=== PATIENT | male | born 1985 | race African-American/Black ===

== ENCOUNTER 2017-02-02 20:05 | Emergency (ER) | payer SELFPAY ==
--- NOTE | 2017-02-02 22:09 | RAD ---
Indication: Shortness of breath. 2 views of the chest including dual energy PA views demonstrate no mediastinal shift. Heart is normal size and configuration. Lung beltre are clear. IMPRESSION: No active cardiopulmonary disease is noted.
[2017-02-02 23:18] LABS: Albumin 4.5 g/dL (3.2-5.2); BUN/Creatinine Ratio 10.1 (8-20); Calcium 9.7 mg/dL (8.6-10.3); EGFR African American 113.4 (>60); EGFR Non-African American 88.2 (>60); Globulin 2.8 g/dL (2-4); Potassium 3.8 mmol/L (3.5-5.0); Total Bilirubin 1.1 mg/dL (0.2-1.0); Total Protein 7.3 g/dL (6.4-8.9)
[2017-02-02 23:34] LABS: Hematocrit 46 % (42-52); Hemoglobin 15.2 g/dl (14.0-18.0); Mean Corpuscular HGB Conc 33 g/dl (31-36); Mean Corpuscular Hemoglobin 29 pg (27-31); Mean Corpuscular Volume 87 fL (80-94); Mean Platelet Volume 10 um3 (7.4-10.4); Red Blood Count 5.31 10^6/ul (4.0-5.4); Red Cell Distribution Width 12 % (10.5-15); White Blood Count 7.9 10^3/ul (3.5-10.8)
[2017-02-03] MEDS ORDERED: Albuterol HFA INHALER* 8 gm MDI INH ONE (00:06)
--- NOTE | 2017-02-03 00:29 | ED ---
Allergic Reaction/Systemic - HPI Summary HPI Summary: Patient presents to the ED with a possible allergic reaction. He states while working this afternoon, he inhaled some of the product he was working with ( some kind of spice), and began to cough and feel SOB with feelings of throat discomfort. He decided to leave work and go home, upon where he was found "unresponsive" by his neighbors, but he states he was just fatigued and didn't wake up. On arrival to the ED, he feels better and denies any current symptoms. He denies known allergies and has never had this severe of a reaction before, but states he usually coughs when inhaling the product. Episode happened this morning at work, and he presents to the ED at 10pm. It is unknown if this was an allergic reaction or some other etiology. He feels OK, denies recent illness or feelings of illness. VS stable on arrival. The product from which he is referring may have caused this reaction, he states he eats and cooks with this spice daily with no complications. PMHx includes HTN 10 years ago but is currently controlled. - History of Current Complaint Chief Complaint: EDGeneral Time Seen by Provider: 02/02/17 23:03 Hx Obtained From: Patient Onset/Duration: Sudden Onset, Started hours ago Timing: Intermittent, Lasting Minutes Severity Initially: Mild Severity Currently: None Pain Intensity: 0 Pain Scale Used: 0-10 Numeric Aggravating Factor(s): Nothing Alleviating Factor(s): Nothing Associated Signs And Symptoms: Positive: Difficulty Breathing, Throat Tightening - Related Hx Possible Reaction To: Food - Allergies/Home Medications Allergies/Adverse Reactions: Allergies Allergy/AdvReac Type Severity Reaction Status Date / Time No Known Allergies Allergy Verified 02/02/17 20:20 PMH/Surg Hx/FS Hx/Imm Hx Previously Healthy: Yes Endocrine/Hematology History: Denies: Hx Anticoagulant Therapy, Hx Diabetes Cardiovascular History: Reports: Hx Hypertension Infectious Disease History: No Infectious Disease History: Denies: Traveled Outside the [place] in Last 30 Days - Family History Known Family History: Positive: Cardiac Disease - Social History Occupation: Employed Full-time Lives: With Family Alcohol Use: Rare Hx Substance Use: No Substance Use Type: Reports: None Hx Tobacco Use: Yes Smoking Status (MU): Current Some Day Smoker Review of Systems Constitutional: Negative Negative: Fever, Chills, Fatigue Eyes: Negative Negative: Diplopia, Drainage, Erythema Positive: Sore Throat - now has dissipated Negative: Palpitations, Chest Pain Positive: Shortness Of Breath, Cough - back to baseline currently Negative: Abdominal Pain, Vomiting Positive: no symptoms reported, see HPI Skin: Negative Neurological: Negative All Other Systems Reviewed And Are Negative: Yes Physical Exam Triage Information Reviewed: Yes Vital Signs On Initial Exam: Initial Vitals Temp Pulse Resp BP Pulse Ox 98.2 F 86 16 162/79 98 02/02/17 20:22 02/02/17 20:22 02/02/17 20:22 02/02/17 20:22 02/02/17 20:22 Vital Signs Reviewed: Yes Appearance: Positive: Well-Appearing, Well-Nourished Skin: Positive: Warm, Skin Color Reflects Adequate Perfusion Head/Face: Positive: Normal Head/Face Inspection Eyes: Positive: Normal, EOMI, KEITH, Conjunctiva Clear Neck: Positive: Supple, Nontender, No Lymphadenopathy Respiratory/Lung Sounds: Positive: Clear to Auscultation, Breath Sounds Present Cardiovascular: Positive: Normal, RRR, Pulses are Symmetrical in both Upper and Lower Extremities Musculoskeletal: Positive: Normal, Strength/ROM Intact Neurological: Positive: Speech Normal Psychiatric: Positive: Normal AVPU Assessment: Alert - [place] Coma Scale Best Eye Response: 4 - Spontaneous Best Motor Response: 6 - Obeys Commands Best Verbal Response: 5 - Oriented Coma Scale Total: 15 Diagnostics - Vital Signs Vital Signs Temp Pulse Resp BP Pulse Ox 02/02/17 23:30 73 12 137/82 100 02/02/17 23:16 74 12 100 02/02/17 23:14 130/70 02/02/17 21:37 98.8 F 97 16 147/81 100 02/02/17 20:22 98.2 F 86 16 162/79 98 - Laboratory Lab Results: Lab Results 02/02/17 02/02/17 02/02/17 Range/Units 22:34 22:34 23:21 WBC (3.5-10.8) 10^3/ul RBC (4.0-5.4) 10^6/ul Hgb (14.0-18.0) g/dl Hct (42-52) % MCV (80-94) fL MCH (27-31) pg MCHC (31-36) g/dl RDW (10.5-15) % Plt Count (150-450) 10^3/ul MPV (7.4-10.4) um3 Neut % (Auto) (38-83) % Lymph % (Auto) (25-47) % [place] % (Auto) (1-9) % Eos % (Auto) (0-6) % Baso % (Auto) (0-2) % Absolute Neuts (auto) (1.5-7.7) 10^3/ul Absolute Lymphs (auto) (1.0-4.8) 10^3/ul Absolute Monos (auto) (0-0.8) 10^3/ul Absolute Eos (auto) (0-0.6) 10^3/ul Absolute Basos (auto) (0-0.2) 10^3/ul Absolute Nucleated RBC 10^3/ul Nucleated RBC % INR (Anticoag Therapy) 0.91 (0.89-1.11) APTT 23.7 L (26.0-36.3) seconds Sodium 136 (133-145) mmol/L Potassium 3.8 (3.5-5.0) mmol/L Chloride 103 (101-111) mmol/L Carbon Dioxide 27 (22-32) mmol/L Anion Gap 6 (2-11) mmol/L BUN 10 (6-24) mg/dL Creatinine 0.99 (0.67-1.17) mg/dL Est GFR ( Amer) 113.4 (>60) Est GFR (Non-Af Amer) 88.2 (>60) BUN/Creatinine Ratio 10.1 (8-20) Glucose 90 (70-100) mg/dL Calcium 9.7 (8.6-10.3) mg/dL Total Bilirubin 1.10 H (0.2-1.0) mg/dL AST 20 (13-39) U/L ALT 14 (7-52) U/L Alkaline Phosphatase 52 (34-104) U/L Troponin I 0.00 (<0.04) ng/mL B-Natriuretic Peptide 7 ( - 100) pg/mL Total Protein 7.3 (6.4-8.9) g/dL Albumin 4.5 (3.2-5.2) g/dL Globulin 2.8 (2-4) g/dL Albumin/Globulin Ratio 1.6 (1-3) 02/02/17 Range/Units 23:21 WBC 7.9 (3.5-10.8) 10^3/ul RBC 5.31 (4.0-5.4) 10^6/ul Hgb 15.2 (14.0-18.0) g/dl Hct 46 (42-52) % MCV 87 (80-94) fL MCH 29 (27-31) pg MCHC 33 (31-36) g/dl RDW 12 (10.5-15) % Plt Count 189 (150-450) 10^3/ul MPV 10 (7.4-10.4) um3 Neut % (Auto) 76.0 (38-83) % Lymph % (Auto) 15.0 L (25-47) % [place] % (Auto) 7.5 (1-9) % Eos % (Auto) 1.1 (0-6) % Baso % (Auto) 0.4 (0-2) % Absolute Neuts (auto) 6.0 (1.5-7.7) 10^3/ul Absolute Lymphs (auto) 1.2 (1.0-4.8) 10^3/ul Absolute Monos (auto) 0.6 (0-0.8) 10^3/ul Absolute Eos (auto) 0.1 (0-0.6) 10^3/ul Absolute Basos (auto) 0 (0-0.2) 10^3/ul Absolute Nucleated RBC 0 10^3/ul Nucleated RBC % 0.1 INR (Anticoag Therapy) (0.89-1.11) APTT (26.0-36.3) seconds Sodium (133-145) mmol/L Potassium (3.5-5.0) mmol/L Chloride (101-111) mmol/L Carbon Dioxide (22-32) mmol/L Anion Gap (2-11) mmol/L BUN (6-24) mg/dL Creatinine (0.67-1.17) mg/dL Est GFR ( Amer) (>60) Est GFR (Non-Af Amer) (>60) BUN/Creatinine Ratio (8-20) Glucose (70-100) mg/dL Calcium (8.6-10.3) mg/dL Total Bilirubin (0.2-1.0) mg/dL AST (13-39) U/L ALT (7-52) U/L Alkaline Phosphatase (34-104) U/L Troponin I (<0.04) ng/mL B-Natriuretic Peptide ( - 100) pg/mL Total Protein (6.4-8.9) g/dL Albumin (3.2-5.2) g/dL Globulin (2-4) g/dL Albumin/Globulin Ratio (1-3) Result Diagrams: 02/02/17 23:21 02/02/17 22:34 Lab Statement: Any lab studies that have been ordered have been reviewed, and results considered in the medical decision making process. Allergic Reaction Course/Dx - Course Course Of Treatment: He states while working this afternoon, he inhaled some of the product he was working with (some kind of spice), and began to cough and feel SOB with feelings of throat discomfort. He decided to leave work and go home, upon where he was found "unresponsive" by his neighbors, but he states he was just fatigued and didn't wake up. On arrival to the ED, he feels better and denies any current symptoms. He denies known allergies and has never had this severe of a reaction before, but states he usually coughs when inhaling the product. Episode happened this morning at work, and he presents to the ED at 10pm. It is unknown if this was an allergic reaction or some other etiology. He feels OK, denies recent illness or feelings of illness. VS stable on arrival. The product from which he is referring may have caused this reaction, he states he eats and cooks with this spice daily with no complications. PMHx includes HTN 10 years ago but is currently controlled. Treatment options explained and decided to initiate a once a day allergy medication for ongoing symptoms with worsening today. Claritin was prescribed for home. Inhaler given in ED for breakthrough SOB and he is encouraged to return to the ED if these symptoms recur. Medications were reveiwed with patient. Encouarged to follow up with PCP or return to ED for worsening symptoms. Patient does not currently have a PCP, so list of PCP's given. Hx of HTN for which he does not take medications, but WNL today. Return precautions given. Patient understands and agrees with plan. Ok for discharge. - Diagnoses Provider Diagnoses: Allergic reaction Is Visit Related: No - Provider Notifications Instructed by Provider To: Have Pt Call For Appt. - PCP - to establish care Discharge - Discharge Plan Condition: Stable Disposition: HOME Prescriptions: Loratadine [Claritin 10 MG CAP] 10 mg PO DAILY #30 cap Patient Education Materials: Allergies (ED) Referrals: No Primary Care Phys,NOPCP [Primary Care Provider] - [facility] [Provider Group] [facility] [Provider Group] Additional Instructions: It is uncertain if your symptoms are related to allergies A trial allergy medication should be initiated. I have given you a a prescription for claritin. You will take this once a day For breakthrough shortness of breath, use the albuterol inhaler If you develop any worsening symptoms, return to the ED.
[2017-02-03 01:44] VITALS: BP 125/67
== END 2017-02-03 01:40 | disposition home or self-care (01) ==
LOC: ED 20:05
DX: T78.40XA Allergy, unspecified, initial encounter (principal); R06.02 Shortness of breath; Z72.0 Tobacco use; X58.XXXA Exposure to other specified factors, initial encounter
CPT/HCPCS: 36415; 71020; 80053; 83880; 84484; 85025; 85610; 85730; 93005; 99283; A9270-GY

== ENCOUNTER 2018-08-20 18:48 | Emergency (ER) | payer OTHER ==
--- NOTE | 2018-08-20 22:00 | ED ---
Nausea/Vomiting/Diarrhea HPI - HPI Summary HPI Summary: Patient complains of intermittent N/V 2 months. Described as random onset, occasionally associated with eating occasionally not. Denies abdominal pain, fever, cough, sore throat, CP, SOB, diarrhea, change in urine, change in BM. Medical history is none. Abdominal surgical history is none. - History of Current Complaint Chief Complaint: EDNauseaVomitDiarrh Stated Complaint: NAUSEA PER PT Time Seen by Provider: 08/20/18 21:58 Hx Obtained From: Patient Onset/Duration: Gradual Onset, Lasting Weeks Severity Currently: None Pain Intensity: 0 Pain Scale Used: 0-10 Numeric Nausea/Vomiting Presence: Nauseated Vomiting Frequency: Daily Vomiting Characteristics: Nonbilious Diarrhea Presence: No - Allergies/Home Medications Allergies/Adverse Reactions: Allergies Allergy/AdvReac Type Severity Reaction Status Date / Time pork derived (porcine) Allergy Hives/Diff. Verified 08/20/18 18:58 Breathing/I tching PMH/Surg Hx/FS Hx/Imm Hx Endocrine/Hematology History: Denies: Hx Anticoagulant Therapy, Hx Diabetes Cardiovascular History: Reports: Hx Hypertension History: Denies: Hx Dialysis Sensory History: Denies: Hx Eye Prosthesis Opthamlomology History: Denies: Hx Legally Blind EENT History: Denies: Hx Deafness Neurological History: Denies: Hx Dementia Psychiatric History: Denies: Hx Autism Infectious Disease History: No Infectious Disease History: Denies: Traveled Outside the [place] in Last 30 Days - Family History Known Family History: Positive: Cardiac Disease - Social History Alcohol Use: Rare Hx Substance Use: No Substance Use Type: Reports: None Hx Tobacco Use: Yes Smoking Status (MU): Current Some Day Smoker Review of Systems Constitutional: Negative Eyes: Negative ENT: Negative Cardiovascular: Negative Respiratory: Negative Positive: Vomiting, Nausea Genitourinary: Negative Musculoskeletal: Negative Skin: Negative Neurological: Negative Psychological: Normal All Other Systems Reviewed And Are Negative: Yes Physical Exam - Summary Physical Exam Summary: Abdomen soft nontender. Lung sounds clear to auscultation bilaterally. Patient in no apparent distress. No active vomiting here in ED. Triage Information Reviewed: Yes Vital Signs On Initial Exam: Initial Vitals Temp Pulse Resp BP Pulse Ox 99.1 F 88 18 148/94 100 08/20/18 18:55 08/20/18 18:55 08/20/18 18:55 08/20/18 18:55 08/20/18 18:55 Vital Signs Reviewed: Yes Appearance: Positive: Well-Appearing Skin: Positive: Warm Head/Face: Positive: Normal Head/Face Inspection Eyes: Positive: Normal Neck: Positive: Supple Respiratory/Lung Sounds: Positive: Clear to Auscultation Cardiovascular: Positive: Normal Abdomen Description: Positive: Nontender Musculoskeletal: Positive: Normal Neurological: Positive: Normal Psychiatric: Positive: Normal AVPU Assessment: Alert - [place] Coma Scale Best Eye Response: 4 - Spontaneous Best Motor Response: 6 - Obeys Commands Best Verbal Response: 5 - Oriented Coma Scale Total: 15 Diagnostics - Vital Signs Vital Signs Temp Pulse Resp BP Pulse Ox 08/20/18 18:55 99.1 F 88 18 148/94 100 - Laboratory Result Diagrams: 08/20/18 22:53 08/20/18 22:53 Lab Statement: Any lab studies that have been ordered have been reviewed, and results considered in the medical decision making process. Naus/Vom/Diarrhea Course/Dx - Course Course Of Treatment: Patient complains of intermittent N/V 2 months. Described as random onset, occasionally associated with eating occasionally not. Denies abdominal pain, fever, cough, sore throat, CP, SOB, diarrhea, change in urine, change in BM. Medical history is none. Abdominal surgical history is none. Physical exam:Abdomen soft nontender. Lung sounds clear to auscultation bilaterally. Patient in no apparent distress. No active vomiting here in ED. Vital signs within normal limits. Labs unremarkable. Patient nausea controlled with Zofran ODT. Rx for same. Follow-up with GI - Differential Dx/Diagnosis Provider Diagnosis: Nausea & vomiting Condition At Discharge: Stable Discharge - Sign-Out/Discharge Documenting (check all that apply): Patient Departure Patient Received Moderate/Deep Sedation with Procedure: No - Discharge Plan Condition: Stable Disposition: HOME Prescriptions: Promethazine TAB* [Phenergan TAB*] 25 mg PO Q8H PRN 10 Days #30 tab PRN Reason: Nausea Patient Education Materials: Acute Nausea and Vomiting (ED) Referrals: No Primary Care Phys,NOPCP [Primary Care Provider] - Bishop Ballard MD [Medical Doctor] - Additional Instructions: Take medication as prescribed. Follow-up with GI Dr. Ballard for further evaluation of chronic nausea. Return to the ED for any new or worsening symptoms. - Billing Disposition and Condition Condition: STABLE Disposition: Home
[2018-08-20] MEDS ORDERED: Ondansetron ODT TAB* 4 MG PO ONE (22:38)
[2018-08-20 23:03] LABS: ABS Basophils 0.1 10^3/ul (0-0.2); ABS Eosinophils 0.1 10^3/ul (0-0.6); ABS Lymphocytes 2.6 10^3/ul (1.0-4.8); ABS Monocytes 0.6 10^3/ul (0-0.8); ABS Neutrophils 3.8 10^3/ul (1.5-7.7); ABS Nucleated RBC 0 10^3/ul; Hematocrit 44 % (36-46); Hemoglobin 14.6 g/dL (14.0-18.0); Mean Corpuscular HGB Conc 34 g/dL (31-36); Mean Corpuscular Hemoglobin 29 pg (27-31); Mean Corpuscular Volume 87 fL (80-94); Mean Platelet Volume 9.2 fL (7.4-10.4); Nucleated Red Blood Cells % 0.1; Platelet Count 221 10^3/uL (150-450); Red Blood Count 5.03 10^6 /uL (4.18-5.48); Red Cell Distribution Width 13 % (10.5-15); White Blood Count 7.2 10^3/uL (3.5-10.8)
[2018-08-20 23:18] LABS: ALT 11 U/L (7-52); AST 15 U/L (13-39); Albumin/Globulin Ratio 1.7 (1-3); Alkaline Phosphatase 51 U/L (34-104); Anion Gap 6 mmol/L (2-11); Blood Urea Nitrogen 12 mg/dL (6-24); C Reactive Protein < 1.00 mg/L (<8.01); CO2 Carbon Dioxide 28 mmol/L (22-32); Chloride 102 mmol/L (101-111); EGFR African American 114.6 (>60); EGFR Non-African American 94.7 (>60); Globulin 2.4 g/dL (2-4); Glucose 97 mg/dL (70-100); Potassium 3.7 mmol/L (3.5-5.0); Sodium 136 mmol/L (135-145); Total Protein 6.4 g/dL (6.4-8.9)
[2018-08-21 00:38] VITALS: BP 0/0
== END 2018-08-21 00:37 | disposition home or self-care (01) ==
LOC: ED 18:48
DX: R11.2 Nausea with vomiting, unspecified (principal); I10 Essential (primary) hypertension; Z72.0 Tobacco use
CPT/HCPCS: 36415; 80053; 83690; 85025; 86140; 99282; A9270-GY

== ENCOUNTER 2019-06-22 11:36 | Emergency (ER) | payer OTHER ==
--- NOTE | 2019-06-22 13:41 | ED ---
Complex/Multi-Sys Presentation - HPI Summary HPI Summary: This patient is a 34 year old male presenting to [facility] with a chief complaint of general illness. The patient states he has fatigue, general weakness, and occasional nausea. He states the nausea is aggravated by eating but he is able to keep the food down. He states he is trying to quit smoking and cut back on cigarettes a week ago. Pt denies any fever, chills, erythema of eyes, sore throat, CP, SOB, cough, abdominal pain, vomiting, dysuria, hematuria, myalgia, edema, rash, or dizziness. - History Of Current Complaint Chief Complaint: EDGeneral Time Seen by Provider: 06/22/19 13:33 Hx Obtained From: Patient Onset/Duration: Lasting Days Timing: Days Associated Signs And Symptoms: Positive: Nausea - Allergies/Home Medications Allergies/Adverse Reactions: Allergies Allergy/AdvReac Type Severity Reaction Status Date / Time pork derived (porcine) Allergy Hives/Diff. Verified 06/22/19 11:45 Breathing/I tching Home Medications: Home Medications NK [No Home Medications Reported] 06/22/19 [History Confirmed 06/22/19] PMH/Surg Hx/FS Hx/Imm Hx Endocrine/Hematology History: Denies: Hx Anticoagulant Therapy, Hx Diabetes Cardiovascular History: Reports: Hx Hypertension History: Denies: Hx Dialysis Sensory History: Denies: Hx Eye Prosthesis, Hx Legally Blind, Hx Deafness Opthamlomology History: Denies: Hx Eye Prosthesis, Hx Legally Blind Neurological History: Denies: Hx Dementia Psychiatric History: Denies: Hx Autism Infectious Disease History: No Infectious Disease History: Denies: Traveled Outside the [place] in Last 30 Days - Family History Known Family History: Positive: Cardiac Disease - Social History Alcohol Use: Rare Hx Substance Use: No Substance Use Type: Reports: None Hx Tobacco Use: Yes Smoking Status (MU): Current Some Day Smoker Review of Systems Positive: Fatigue. Negative: Fever, Chills Negative: Erythema Negative: Sore Throat Negative: Chest Pain Negative: Shortness Of Breath, Cough Positive: Nausea. Negative: Abdominal Pain, Vomiting Negative: dysuria, hematuria Negative: Myalgia, Edema Negative: Rash Neurological: Other - Neg: Dizziness Positive: Weakness All Other Systems Reviewed And Are Negative: No Physical Exam - Summary Physical Exam Summary: Constitutional: Well-developed, Well-nourished, Alert. (-) Distressed Skin: Warm, Dry HENT: Normocephalic; Atraumatic Eyes: Conjunctiva normal Neck: Musculoskeletal ROM normal neck. (-) JVD, (-) Stridor, (-) Tracheal deviation Cardio: Rhythm regular, rate normal, Heart sounds normal; Intact distal pulses; The pedal pulses are 2+ and symmetric. Radial pulses are 2+ and symmetric. (-) Murmur Pulmonary/Chest wall: Effort normal. (-) Respiratory distress, (-) Wheezes, (-) Rales Abd: Soft, (-) tenderness, (-) Distension, (-) Guarding, (-) Rebound Musculoskeletal: (-) Edema Lymph: (-) Cervical adenopathy Neuro: Alert, Oriented x3 Psych: Mood and affect Normal Triage Information Reviewed: Yes Vital Signs On Initial Exam: Initial Vitals Temp Pulse Resp BP Pulse Ox 98.4 F 74 16 151/99 100 06/22/19 11:42 06/22/19 11:42 06/22/19 11:42 06/22/19 11:42 06/22/19 11:42 Vital Signs Reviewed: Yes Procedures - Sedation Patient Received Moderate/Deep Sedation with Procedure: No Diagnostics - Vital Signs Vital Signs Temp Pulse Resp BP Pulse Ox 06/22/19 11:42 98.4 F 74 16 151/99 100 - Laboratory Result Diagrams: 06/22/19 13:40 06/22/19 13:40 Lab Statement: Any lab studies that have been ordered have been reviewed, and results considered in the medical decision making process. - EKG 1343 Cardiac Rate: NL - 68 BPM EKG Rhythm: Sinus Rhythm Summary of EKG Findings: ST elev, probable normal early repol pattern. No STEMI. ED Physician has reviewed and interpreted this report. Complex Multi-Symp Course/Dx Course Of Treatment: This patient is a 34 year old male presenting to [facility] with a chief complaint of general illness. The patient states he has fatigue, general weakness, and occasional nausea. He seems to have signficiant sleep disturbance and caffeine intake which can contribute to these symptoms. Physical exam, labs, and EKG were unremarkable except for elevated blood pressure. Plan for discharge was discussed with the patient and he was agreeable with this plan. - Diagnoses Provider Diagnoses: Fatigue, Insomnia, Hypertension Discharge ED - Sign-Out/Discharge Documenting (check all that apply): Patient Departure - Discharge - Discharge Plan Condition: Stable Disposition: HOME Patient Education Materials: Hypertension (ED) Referrals: [facility] [Outside] - 1 Week Additional Instructions: Purchase a blood pressure cough and keep track of your blood pressure. Follow up with [facility] in a week. - Attestation Statements Document Initiated by Scribe: Yes Documenting Scribe: Roger Velazquez Provider For Whom Scribe is Documenting (Include Credential): Ajay Villarreal MD Scribe Attestation: Roger Tomlinson, scribed for Ajay Villarreal MD on 06/22/19 at 1528. Status of Scribe Document: Ready
[2019-06-22 13:50] LABS: ABS Basophils 0.1 10^3/ul (0-0.2); ABS Eosinophils 0.1 10^3/ul (0-0.6); ABS Lymphocytes 1.5 10^3/ul (1.0-4.8); ABS Monocytes 0.4 10^3/ul (0-0.8); ABS Neutrophils 5.1 10^3/ul (1.5-7.7); Eosinophil % 0.9 %; Hematocrit 46 % (42-52); Hemoglobin 15.1 g/dL (14.0-18.0); Lymphocyte % 21.4 %; Mean Corpuscular HGB Conc 33 g/dL (31-36); Mean Corpuscular Hemoglobin 30 pg (27-31); Mean Corpuscular Volume 90 fL (80-94); Mean Platelet Volume 9.3 fL (7.4-10.4); Nucleated Red Blood Cells % 0.1; Platelet Count 224 10^3/uL (150-450); Red Cell Distribution Width 13 % (10-15); White Blood Count 7.1 10^3/uL (3.5-10.8)
[2019-06-22 14:08] LABS: Albumin 4.1 g/dL (3.2-5.2); Albumin/Globulin Ratio 1.7 (1-3); EGFR African American 103.5 (>60); EGFR Non-African American 85.5 (>60); Globulin 2.4 g/dL (2-4); Total Bilirubin 0.7 mg/dL (0.2-1.0); Total Protein 6.5 g/dL (6.4-8.9)
[2019-06-22 14:30] LABS: TSH (Thyroid Stimulating Horm) 0.47 mcIU/mL (0.34-5.60)
[2019-06-22 15:43] LABS: Urine Appearance Cloudy; Urine Bilirubin Negative (Negative); Urine Blood Negative (Negative); Urine Color Yellow; Urine Glucose Negative (Negative); Urine Ketones Negative (Negative); Urine Nitrite Negative (Negative); Urine Protein Negative (Negative); Urine Specific Gravity 1.025 (1.010-1.030); Urine Urobilinogen Negative (Negative)
[2019-06-22 15:56] VITALS: BP 145/79
== END 2019-06-22 15:54 | disposition home or self-care (01) ==
LOC: ED 11:36
DX: G47.00 Insomnia, unspecified (principal); I10 Essential (primary) hypertension; F17.210 Nicotine dependence, cigarettes, uncomplicated
CPT/HCPCS: 36415; 80053; 81003; 83605; 83735; 84443; 84484; 85025; 93005; 99282